=== PATIENT | male | born 1935 | race Caucasian/White ===

== ENCOUNTER 2017-06-09 22:42 | Emergency (ER) | payer MEDICARE ==
--- NOTE | 2017-06-09 23:21 | ER Document Report ---
ED General - General Chief Complaint: High Blood Sugar Stated Complaint: BLOOD SUGAR ISSUE Time Seen by Provider: 06/09/17 23:01 Notes: Patient is an 81-year-old male who presents with complaint of high blood sugar. He is a long-term diabetic. He says he has been diabetic for 55 years. He says every time he gets steroid shot his sugars go up. Has history of back issues. He says his doctor was adamant about giving him a steroid shot. He got a cortisone shot in his back. Today's blood she was found to be more than 600. He therefore was brought to the ER. He says he otherwise feels well and has no further complaints. He denies any recent infections. He denies any vomiting. No pain other than his chronic back pain. The only complaint he has is that he has a chronic "hitch" in the pinky of his left hand. He says it is due to history of carpal tunnel syndrome. He asked if there is a hand doctor he could be referred to to see if they can fix the hitch in his left fifth digit. Patient does have history of atrial fibrillation and is on Pradaxa. TRAVEL OUTSIDE OF THE [place] IN LAST 30 DAYS: No - Related Data Allergies/Adverse Reactions: lorazepam [From Ativan] Adverse Reaction (Severe, Verified 08/27/15 14:20) Hallucinations morphine [Morphine] Adverse Reaction (Severe, Verified 08/27/15 16:41) Hallucinations Past Medical History - Social History Smoking Status: Never Smoker Frequency of alcohol use: None Drug Abuse: None Family History: Reviewed & Not Pertinent - Past Medical History Cardiac Medical History: Reports: Hx Atrial Fibrillation, Hx Congestive Heart Failure, Hx Heart Attack, Hx Hypercholesterolemia Endocrine Medical History: Reports: Hx Diabetes Mellitus Type 1, Hx Diabetes Mellitus Type 2 Musculoskeltal Medical History: Reports Hx Arthritis - Lumbar Psychiatric Medical History: Reports: Hx Dementia Past Surgical History: Reports: Hx Orthopedic Surgery - Back Review of Systems - Review of Systems Notes: My Normal Review Basic REVIEW OF SYSTEMS: CONSTITUTIONAL : Denies fever, chills, or sweats. Denies recent illness. EENT: Denies eye, ear, throat, or mouth pain or symptoms. Denies nasal or sinus congestion. RESPIRATORY: Denies cough, cold, or chest congestion. Denies shortness of breath, difficulty breathing, or wheezing. GASTROINTESTINAL: Denies abdominal pain. Denies nausea, vomiting, or diarrhea. MUSCULOSKELETAL: Chronic back pain SKIN: Denies rash or skin lesions. NEUROLOGICAL: Denies altered mental status or loss of consciousness. Denies headache. Denies weakness or paralysis or loss of use of either side. Denies problems with gait or speech. Denies sensory or motor loss. ALL OTHER SYSTEMS REVIEWED AND NEGATIVE. Physical Exam - Vital signs Vitals: Temp Pulse Resp BP Pulse Ox 97.6 F 60 20 153/77 H 95 06/09/17 23:28 06/09/17 23:28 06/09/17 23:28 06/09/17 23:28 06/09/17 23:28 - Notes Notes: General Appearance: Well nourished, alert, cooperative, no acute distress, no obvious discomfort. Well-appearing. Vitals: reviewed, See vital signs table. Head: no swelling or tenderness to the head Eyes: PERRL, EOMI, Conjuctiva clear Mouth: No decreasd moisture Lungs: No wheezing, No rales, No rhonci, No accessory muscle use, good air exchange bilaterally. Heart: Normal rate, irregular rythm, No murmur, no rub Abdomen: Normal BS, soft, No rigidity, No abdominal tenderness, No guarding, no rebound, no abdominal masses, no organomegaly Extremities: strength 5/5 in all extremities, good pulses in all extremities, patient's left fifth digit will catch when he goes to flex it and extend it fully. There is no significant swelling or redness to the finger or hand., no edema. Skin: warm, dry, appropriate color, no rash Neuro: speech clear, oriented x 3, normal affect, responds appropriately to questions. Renal nerves II through XII intact. Patient was all extremities without difficulty. Course - Re-evaluation Re-evalutation: 06/10/17 03:15 Patient's blood sugar was initially improving, but started to increase on the latest accucheck; therefore, we have increased his insulin drip some to 7 units/ hr. 06/10/17 06:02 Patient continues to say that he is feeling well. He has no complaints at this time. His blood sugar has been slowly dropping down trending appropriately. Once his blood sugar is below 250 I will discharge him home with increasing his Lantus. We will looking over his medication reconciliation it appears that he is on Lantus 15 units daily. I have given him 25 units here this morning. He is also on sliding scale insulin with frequent Accu-Cheks as well as glimepiride and metformin. These are all done at the assisted living facility. We will have him continue his baseline medications but increase his Lantus to 25 units for the next several days. This should hopefully give good coverage for the expected increase in his blood sugar from received the cortisone shot. 06/10/17 07:25 Patient's blood sugar is below 200. He will be discharged home. He says he continues to feel great. I talked in length about avoiding sweet foods and candies. I informed him to give the instructions to die cast supervisor at the assisted living facility where he stays so that they can appropriately adjust his Lantus. I encourage him return to ER immediately if he has recurrent high sugars despite taking his insulin. Also encouraged him to make sure that he makes the sister living facility workers aware if he starts feel dizzy or lightheaded so that they can check his blood sugar. Patient agrees with plan and he will be discharged home. Dictation of this chart was performed using voice recognition software; therefore, there may be some unintended grammatical errors. - Vital Signs Vital signs: Temp Pulse Resp BP Pulse Ox 97.6 F 60 20 121/60 96 06/09/17 23:28 06/09/17 23:28 06/10/17 06:31 06/10/17 06:31 06/10/17 06:31 - Laboratory Result Diagrams: 06/09/17 23:20 06/09/17 23:20 Laboratory results interpreted by me: 06/09/17 06/09/17 06/09/17 23:20 23:20 23:24 WBC 3.4 L RBC 3.95 L Hgb 12.7 L Hct 37.6 L Seg Neutrophils % 89.3 H Lymphocytes % 9.7 L Monocytes % 0.9 L Absolute Lymphocytes 0.3 L Absolute Monocytes 0.0 L Sodium 133.2 L Carbon Dioxide 21 L BUN 26 H Glucose 599 H* POC Glucose 512 H* Urine Glucose (UA) Urine Ketones Urine Blood 06/09/17 06/10/17 06/10/17 23:41 01:19 02:25 WBC RBC Hgb Hct Seg Neutrophils % Lymphocytes % Monocytes % Absolute Lymphocytes Absolute Monocytes Sodium Carbon Dioxide BUN Glucose POC Glucose 436 H* 435 H* Urine Glucose (UA) >=500 H Urine Ketones TRACE H Urine Blood SMALL H 06/10/17 06/10/17 06/10/17 03:32 04:22 05:51 WBC RBC Hgb Hct Seg Neutrophils % Lymphocytes % Monocytes % Absolute Lymphocytes Absolute Monocytes Sodium Carbon Dioxide BUN Glucose POC Glucose 395 H 390 H 279 H Urine Glucose (UA) Urine Ketones Urine Blood Discharge - Discharge Clinical Impression: Hyperglycemia Condition: Good Disposition: HOME, SELF-CARE Additional Instructions: We will need to increase your insulin dosage over the next 3 days to help compensate for your high blood sugar related to the cortisone shot. Please increase your Lantus dosage from 15 units to 25 units daily for better blood sugar control over the next 3 days. We have already given your Lantus dosage for today (06/10/17). Please continue your other diabetes medications including your sliding scale insulin. Please return to the ER if you develop recurrent high blood sugars despite your insulin treatment. Please return your lantus dosage back to 15 units a day if your blood sugar is running below 90. Please eat if your blood sugar is below 90. Prescriptions: Insulin Glargine,Hum.rec.anlog [Lantus Solostar] 25 unit SQ DAILY #1 insuln.pen Referrals: ANTHONY VASQUEZ PA-C [Primary Care Provider] - 06/11/17
[2017-06-09] MEDS ORDERED: GLUCAGON,HUMAN RECOMB 1 MG INJ IM PRN (23:22)
[2017-06-09] MEDS ORDERED: DEXTROSE 40% GEL 15 GM TUBE PO PRN ×2 (23:22)
[2017-06-09] MEDS ORDERED: DEXTROSE 50%-WATER 25 GM/50 ML DISP.SYRIN IV PRN ×2 (23:22)
[2017-06-09 23:33] LABS: ABSOLUTE LYMPHOCYTES (AUTO) 0.3 10^3/uL (0.5-4.7); BASOPHILS % (AUTO) 0.1 % (0-2); HEMATOCRIT 37.6 % (37.9-51.0); HEMOGLOBIN 12.7 g/dL (13.5-17.0); HGB HCT DIFFERENCE 0.5; LYMPHOCYTES % (AUTO) 9.7 % (13-45); MEAN CORPUSCULAR HEMOGLOBIN 32.3 pg (27.0-33.4); MEAN CORPUSCULAR HGB CONC 33.9 g/dL (32.0-36.0); MEAN CORPUSCULAR VOLUME 95 fl (80-97); MONOCYTES % (AUTO) 0.9 % (3-13); RED BLOOD COUNT 3.95 10^6/uL (4.35-5.55); RED CELL DISTRIBUTION WIDTH 13.4 % (11.5-14.0); SEGMENTED NEUTROPHILS % (AUTO) 89.3 % (42-78); WHITE BLOOD COUNT 3.4 10^3/uL (4.0-10.5)
[2017-06-10] LABS: ANION GAP 12 (5-19); BLOOD UREA NITROGEN 26 mg/dL (7-20); CALCIUM 8.8 mg/dL (8.4-10.2); CARBON DIOXIDE 21 mmol/L (22-30); CHLORIDE 100 mmol/L (98-107); POTASSIUM 4.9 mmol/L (3.6-5.0); SODIUM 133.2 mmol/L (137-145)
[2017-06-10] MEDS ORDERED: INSULIN REG, HUMAN 100 UNIT/ML 3 ML VIAL (PYX) ONE
[2017-06-10 00:09] LABS: APPEARANCE,URINE CLEAR; BILIRUBIN,URINE NEGATIVE (NEGATIVE); GLUCOSE, URINE >=500 mg/dL (NEGATIVE); KETONES,URINE TRACE mg/dL (NEGATIVE); LEUKOCYTE ESTERASE,URINE NEGATIVE (NEGATIVE); NITRITE,URINE NEGATIVE (NEGATIVE); PROTEIN,URINE NEGATIVE (NEGATIVE); URINE SPECIFIC GRAVITY 1.025; UROBILINOGEN,URINE NEGATIVE mg/dL (<2.0)
[2017-06-10 00:21] LABS: GLUCOSE 599 mg/dL (75-110)
[2017-06-10] MEDS: NORMAL SALINE 100 ML with INSULIN REGULAR, HUMAN 100 UNIT IV PRN ×4 (00:25→00:29)
[2017-06-10] MEDS ORDERED: INSULIN GLARGINE,HUM.REC.ANLOG 1,000 UNIT/10 ML UNIT SUBCUT ONE ×2 (04:48→06:02)
[2017-06-10 07:34] VITALS: BP 104/63
== END 2017-06-10 08:14 | disposition home or self-care (01) ==
LOC: ER 22:42
DX: E11.65 Type 2 diabetes mellitus with hyperglycemia (principal); Z79.84 Long term (current) use of oral hypoglycemic drugs; I48.91 Unspecified atrial fibrillation; I50.9 Heart failure, unspecified; I25.2 Old myocardial infarction; E78.00 Pure hypercholesterolemia, unspecified
CPT/HCPCS: 99285; 36415; 82962; 85025; 80048; 81001; A9270; J1815

== ENCOUNTER 2017-07-31 19:15 | Emergency (ER) | payer MEDICARE ==
--- NOTE | 2017-07-31 19:50 | ER Document Report ---
ED General - General Stated Complaint: FEELING SICK Time Seen by Provider: 07/31/17 19:20 Notes: Patient is an 82-year-old male who presents with fever, cough and feeling nauseated for the past 2 days. Patient reports that symptoms came on abruptly and have been overall unchanged since that time. Nothing improves or worsens his symptoms. He denies any history of similar symptoms in the past. He has not seen his general doctor regarding these concerns. He reports [facility] with [facility]. He did receive an influenza vaccine this year. He denies any shortness of breath, chest pain, headache, neck pain, or altered mental status TRAVEL OUTSIDE OF THE [place] IN LAST 30 DAYS: No - Related Data Allergies/Adverse Reactions: lorazepam [From Ativan] Adverse Reaction (Severe, Verified 08/27/15 14:20) Hallucinations morphine [Morphine] Adverse Reaction (Severe, Verified 08/27/15 16:41) Hallucinations Past Medical History - General Information source: Patient - Social History Smoking Status: Never Smoker Frequency of alcohol use: None Drug Abuse: None Lives with: Shelter Family History: Reviewed & Not Pertinent - Past Medical History Cardiac Medical History: Reports: Hx Atrial Fibrillation, Hx Congestive Heart Failure, Hx Heart Attack, Hx Hypercholesterolemia Endocrine Medical History: Reports: Hx Diabetes Mellitus Type 1, Hx Diabetes Mellitus Type 2 Renal/ Medical History: Denies: Hx Peritoneal Dialysis Musculoskeltal Medical History: Reports Hx Arthritis - Lumbar Psychiatric Medical History: Reports: Hx Dementia Past Surgical History: Reports: Hx Orthopedic Surgery - Back Review of Systems - Review of Systems Notes: Constitutional: Positive for fever. HENT: Negative for sore throat. Eyes: Negative for visual changes. Cardiovascular: Negative for chest pain. Respiratory: Negative for shortness of breath. Positive for cough Gastrointestinal: Negative for abdominal pain, vomiting or diarrhea. Genitourinary: Negative for dysuria. Musculoskeletal: Negative for back pain. Skin: Negative for rash. Neurological: Negative for headaches, weakness or numbness. 10 point ROS negative except as marked above and in HPI. Physical Exam - Vital signs Vitals: Temp Pulse Resp BP Pulse Ox 99.0 F 65 18 112/48 L 93 07/31/17 19:19 07/31/17 19:19 07/31/17 19:19 07/31/17 19:19 07/31/17 19:19 Interpretation: Normal Notes: PHYSICAL EXAMINATION: GENERAL: Well-appearing, well-nourished and in no acute distress. HEAD: Atraumatic, normocephalic. EYES: Pupils equal round and reactive to light, extraocular movements intact, sclera anicteric, conjunctiva are normal. ENT: nares patent, oropharynx clear without exudates. Moderately dry mucous membranes. NECK: Normal range of motion, supple without lymphadenopathy LUNGS: Breath sounds clear to auscultation bilaterally and equal. No wheezes rales or rhonchi. HEART: Regular rate and rhythm without murmurs ABDOMEN: Soft, nontender, normoactive bowel sounds. No guarding, no rebound. No masses appreciated. EXTREMITIES: Normal range of motion, no pitting or edema. No cyanosis. NEUROLOGICAL: No focal neurological deficits. Moves all extremities spontaneously and on command. PSYCH: Normal mood, normal affect. SKIN: Warm, Dry, normal turgor, no rashes or lesions noted. Course - Re-evaluation Re-evalutation: 07/31/17 19:50 Patient presents with cough, vomiting, diarrhea, and fever at home consistent with a diagnosis of influenza. Influenza testing is positive. Patient is overall well in appearance, in no acute distress. Lung sounds clear. Able to tolerate oral intake without difficulty here in the emergency department. After risks and benefits conversation with the patient regarding the use of Tamiflu, they have elected to use supportive care without Tamiflu based on concerns about lack of efficacy as well as the side effect profile. Moreover, patient has been having symptoms for greater than 48 hours at time of presentation moving any likely efficacy of the medication. At this time will discharge with return precautions and follow-up recommendations. Verbal discharge instructions given a the bedside and opportunity for questions given. Medication warnings reviewed. Patient is in agreement with this plan and has verbalized understanding of return precautions and the need for primary care follow-up in the next 24-72 hours. - Vital Signs Vital signs: Temp Pulse Resp BP Pulse Ox 98.7 F 87 16 107/64 94 07/31/17 22:26 07/31/17 22:26 07/31/17 22:26 07/31/17 22:26 07/31/17 22:26 - Laboratory Result Diagrams: 07/31/17 20:00 07/31/17 20:00 Laboratory results interpreted by me: 07/31/17 07/31/17 20:00 20:00 RBC 3.61 L Hgb 11.8 L Hct 33.7 L Lymphocytes % 11.5 L Sodium 135.1 L Glucose 173 H - Diagnostic Test Radiology reviewed: Image reviewed, Reports reviewed Radiology results interpreted by me: 07/31/17 21:31 Chest x-ray: No acute infiltrate or pneumothorax Discharge - Discharge Clinical Impression: Influenza A Condition: Good Disposition: HOME, SELF-CARE Additional Instructions: You have influenza. There is no treatment that is effective for this diagnosis other than supportive care at home. This includes drinking plenty of fluids, using Tylenol or ibuprofen as needed for fever and discomfort, and Zofran as needed for nausea and vomiting. Please follow closely with you primary care physician the next 1-2 days regarding this diagnosis. Return to the emergency department immediately if you began to have persistent vomiting prevents you from being able to keep fluids down for more than 12 hours, you pass out, you began having difficulty breathing, you become confused, or you have any other symptoms that are worrisome to you. Prescriptions: Ondansetron [Zofran Odt 4 mg Tablet] 1 - 2 tab PO Q4H PRN #15 tab.rapdis PRN Reason: For Nausea/Vomiting Referrals: ANTHONY VASQUEZ PA-C [Primary Care Provider] - Follow up as needed
--- NOTE | 2017-07-31 20:04 | RADIOLOGY REPORT (SQ) ---
EXAM DESCRIPTION: CHEST SINGLE VIEW COMPLETED DATE/TIME: 07/31/2017 7:54 pm REASON FOR STUDY: fever, sob COMPARISON: 10/27/2015 EXAM PARAMETERS: NUMBER OF VIEWS: One view. TECHNIQUE: Single frontal radiographic view of the chest acquired. RADIATION DOSE: NA LIMITATIONS: None. FINDINGS: LUNGS AND PLEURA: No opacities, masses or pneumothorax. No pleural effusion. MEDIASTINUM AND HILAR STRUCTURES: No masses. Contour normal. HEART AND VASCULAR STRUCTURES: Heart normal in size. Normal vasculature. BONES: No acute findings. HARDWARE: None in the chest. OTHER: No other significant finding. IMPRESSION: NO ACUTE RADIOGRAPHIC FINDING IN THE CHEST. TECHNICAL DOCUMENTATION: JOB ID: [id number] [employer]- All Rights Reserved
[2017-07-31 20:44] LABS: ABSOLUTE EOSINOPHILS # (AUTO) 0.1 10^3/uL (0.0-0.6); ABSOLUTE LYMPHOCYTES (AUTO) 0.6 10^3/uL (0.5-4.7); ABSOLUTE MONOCYTES (AUTO) 0.6 10^3/uL (0.1-1.4); ABSOLUTE NEUT (AUTO) 3.6 10^3/uL (1.7-8.2); BASOPHILS % (AUTO) 0.9 % (0-2); EOSINOPHILS % (AUTO) 1.6 % (0-6); HEMATOCRIT 33.7 % (37.9-51.0); HEMOGLOBIN 11.8 g/dL (13.5-17.0); LYMPHOCYTES % (AUTO) 11.5 % (13-45); MEAN CORPUSCULAR HEMOGLOBIN 32.5 pg (27.0-33.4); MEAN CORPUSCULAR HGB CONC 34.9 g/dL (32.0-36.0); MEAN CORPUSCULAR VOLUME 93 fl (80-97); MONOCYTES % (AUTO) 12.9 % (3-13); PLATELET COUNT 177 10^3/uL (150-450); RED BLOOD COUNT 3.61 10^6/uL (4.35-5.55); RED CELL DISTRIBUTION WIDTH 13.3 % (11.5-14.0); SEGMENTED NEUTROPHILS % (AUTO) 73.1 % (42-78); TOTAL CELLS COUNTED % (AUTO) 100 %
[2017-07-31 20:52] LABS: A TYPE INFLUENZA AG POSITIVE (NEGATIVE); B INFLUENZA AG NEGATIVE (NEGATIVE)
[2017-07-31 20:53] LABS: ANION GAP 7 (5-19); BLOOD UREA NITROGEN 16 mg/dL (7-20); CALCIUM 8.7 mg/dL (8.4-10.2); CARBON DIOXIDE 23 mmol/L (22-30); CHLORIDE 105 mmol/L (98-107); GLUCOSE 173 mg/dL (75-110); POTASSIUM 4.3 mmol/L (3.6-5.0); SODIUM 135.1 mmol/L (137-145)
[2017-08-01 03:25] VITALS: BP 147/56
== END 2017-08-01 03:23 | disposition home or self-care (01) ==
LOC: ER 19:15
DX: J10.1 Influenza due to other identified influenza virus with other respiratory manifestations (principal); R50.9 Fever, unspecified; R11.0 Nausea; I48.91 Unspecified atrial fibrillation; I50.9 Heart failure, unspecified; E78.00 Pure hypercholesterolemia, unspecified; E11.9 Type 2 diabetes mellitus without complications; I25.2 Old myocardial infarction; Z88.6 Allergy status to analgesic agent
CPT/HCPCS: 36415; 71045; 80048; 83605; 85025; 87040; 87804; 99284

== ENCOUNTER 2020-04-13 09:18 | Emergency (ER) | payer MEDICARE ==
--- NOTE | 2020-04-13 10:45 | RADIOLOGY REPORT (SQ) ---
EXAM DESCRIPTION: HIP LEFT AP/LATERAL IMAGES COMPLETED DATE/TIME: 04/13/2020 10:25 am REASON FOR STUDY: fall, pain on palpation COMPARISON: None. NUMBER OF VIEWS: Two views. TECHNIQUE: AP pelvis and additional frog legview of the left hip. LIMITATIONS: None. FINDINGS: MINERALIZATION: Normal. LEFT HIP: No fracture or dislocation. No worrisome bone lesions. Mild osteophytosis. Joint spaces well maintained. RIGHT HIP: No fracture or dislocation. No worrisome bone lesions. Limited views. Mild osteophytosis . Joint space well maintained. PUBIS AND ISCHIUM: No fracture. SACRUM: No fracture or dislocation. No worrisome bone lesions. LOWER LUMBAR SPINE: No acute fracture. No suspicious osseous lesions. Lower level spondylosis. SOFT TISSUES: Vascular calcifications. OTHER: No other significant finding. IMPRESSION: No evidence of acute bony abnormality of the left hip and pelvis. Mild bilateral osteoa rthritic change. COMMENT: Pelvic fractures are often occult on plain radiographs. If high clinical concern or inabil ity to bear weight recommend CT or MRI. TECHNICAL DOCUMENTATION: JOB ID: [id number] 2010 [employer]- All Rights Reserved Reading location - IP/workstation name: [email or web address]
[2020-04-13 11:55] LABS: ABSOLUTE EOSINOPHILS # (AUTO) 0.1 10^3/uL (0.0-0.6); ABSOLUTE LYMPHOCYTES (AUTO) 1.1 10^3/uL (0.5-4.7); ABSOLUTE MONOCYTES (AUTO) 0.7 10^3/uL (0.1-1.4); ABSOLUTE NEUT (AUTO) 5.7 10^3/uL (1.7-8.2); BASOPHILS % (AUTO) 0.3 % (0-2); EOSINOPHILS % (AUTO) 0.7 % (0-6); HEMATOCRIT 28.7 % (37.9-51.0); HEMOGLOBIN 10.1 g/dL (13.5-17.0); LYMPHOCYTES % (AUTO) 13.9 % (13-45); MEAN CORPUSCULAR HEMOGLOBIN 33.4 pg (27.0-33.4); MEAN CORPUSCULAR HGB CONC 35.3 g/dL (32.0-36.0); MEAN CORPUSCULAR VOLUME 95 fl (80-97); MONOCYTES % (AUTO) 9.5 % (3-13); PLATELET COUNT 176 10^3/uL (150-450); RED BLOOD COUNT 3.03 10^6/uL (4.35-5.55); SEGMENTED NEUTROPHILS % (AUTO) 75.6 % (42-78); TOTAL CELLS COUNTED % (AUTO) 100 %; WHITE BLOOD COUNT 7.6 10^3/uL (4.0-10.5)
[2020-04-13 12:06] LABS: INTERNATIONAL RATION (INR) 2.09; PROTHROMBIN TIME 23.5 SEC (11.4-15.4)
[2020-04-13 12:35] LABS: ALBUMIN 3.2 g/dL (3.5-5.0); ALKALINE PHOSPHATASE 61 U/L (38-126); ANION GAP 8 (5-19); ASPARTATE AMINO TRANSFERASE 17 U/L (17-59); BILIRUBIN,DIRECT 0.2 mg/dL (0.0-0.4); BILIRUBIN,TOTAL 0.6 mg/dL (0.2-1.3); BLOOD UREA NITROGEN 44 mg/dL (7-20); CALCIUM 8.1 mg/dL (8.4-10.2); CARBON DIOXIDE 20 mmol/L (22-30); CHLORIDE 106 mmol/L (98-107); CREATINE KINASE 96 U/L (55-170); GLUCOSE 162 mg/dL (75-110); POTASSIUM 5.2 mmol/L (3.6-5.0); TOTAL PROTEIN 5.8 g/dL (6.3-8.2)
--- NOTE | 2020-04-13 12:38 | ER Document Report ---
Entered by ESTELA KEY SCRIBE 04/13/20 1121 Acting as scribe for:DARREL APPIAH MD ED Fall - General Chief Complaint: Hip Pain Stated Complaint: HIP PAIN/FALL Time Seen by Provider: 04/13/20 11:14 Primary Care Provider: ANTHONY VASQUEZ PA-C [Primary Care Provider] - Follow up as needed Mode of Arrival: Ambulatory Information source: Patient Notes: This 84 year old male patient on pradaxa presents to the emergency department today with complaints of left hip pain after a fall. [facility] and his fall was witnessed by staff. He was getting up from the bed, fell, and landed on his left side. He did not hit his head. He has difficulty bearing weight due to the pain when he stands. TRAVEL OUTSIDE OF THE [place] IN LAST 30 DAYS: No - Related data Allergies/Adverse Reactions: lorazepam [From Ativan] Adverse Reaction (Severe, Verified 08/27/15 14:20) Hallucinations morphine [Morphine] Adverse Reaction (Severe, Verified 08/27/15 16:41) Hallucinations Home Medications: carvedilol, certavit, donezepil, gabapentin, glimepiride, humalog, lantus, lisinopril, memantine metformin, pradaxa, sertraline, tamsulosin, tramadol, seroquel Past Medical History - General Information source: Patient - Social History Smoking Status: Former Smoker Cigarette use (# per day): No Frequency of alcohol use: None Drug Abuse: None Lives with: Family Family History: Reviewed & Not Pertinent - Past Medical History Cardiac Medical History: Reports: Hx Atrial Fibrillation, Hx Congestive Heart Failure, Hx Heart Attack, Hx Hypercholesterolemia Endocrine Medical History: Reports: Hx Diabetes Mellitus Type 2 Musculoskeletal Medical History: Reports Hx Arthritis - Lumbar Psychiatric Medical History: Reports: Hx Dementia Past Surgical History: Reports: Hx Orthopedic Surgery - Back Review of Systems - Review of Systems Constitutional: No symptoms reported EENT: No symptoms reported Cardiovascular: No symptoms reported Respiratory: No symptoms reported Gastrointestinal: No symptoms reported Genitourinary: No symptoms reported Male Genitourinary: No symptoms reported Musculoskeletal: See HPI, Joint pain - left hip Skin: No symptoms reported Hematologic/Lymphatic: No symptoms reported Neurological/Psychological: No symptoms reported -: Yes All other systems reviewed and negative Physical Exam - Vital signs Vitals: Temp Pulse Resp BP Pulse Ox 97.5 F 68 16 104/56 L 95 04/13/20 09:19 04/13/20 09:19 04/13/20 09:19 04/13/20 09:19 04/13/20 09:19 - Notes Notes: Physical Exam: General: Alert, pleasantly confused. HEENT: Normocephalic. Atraumatic. PERRL. Extraocular movements intact. Oropharynx clear. Neck: Supple. Non-tender. Respiratory: No respiratory distress. Clear and equal breath sounds bilaterally. Cardiovascular: Regular rate and rhythm. Abdominal: Normal Inspection. Non-tender. No distension. Normal Bowel Sounds. Back: No gross abnormalities. Extremities: Moves all four extremities. Upper extremities: Normal inspection. Normal ROM. Lower extremities: Left lateral hip tenderness to palpation with associated swelling. Neurological: Pleasantly confused. AAOx4. Normal speech. Psychological: Normal affect. Normal Mood. Skin: Warm. Dry. Normal color. Course - Re-evaluation Re-evalutation: 04/13/20 12:54 Patient's INR was 2.09 due to the Pradaxa he takes. CT scan of the hip was done to exclude a large hematoma as there is some swelling and tenderness around the hip and he is anticoagulated. - Vital Signs Vital signs: Temp Pulse Resp BP Pulse Ox 97.5 F 68 18 112/53 L 94 04/13/20 09:44 04/13/20 09:19 04/13/20 10:02 04/13/20 10:02 04/13/20 10:02 - Laboratory Result Diagrams: 04/13/20 11:44 04/13/20 11:44 Laboratory results interpreted by me: 04/13/20 04/13/20 04/13/20 11:44 11:44 11:44 RBC 3.03 L Hgb 10.1 L Hct 28.7 L PT 23.5 H Sodium 134.3 L Potassium 5.2 H Carbon Dioxide 20 L BUN 44 H Creatinine 1.75 H Est GFR ( Amer) 45 L Est GFR (MDRD) Non-Af 37 L Glucose 162 H Calcium 8.1 L Total Protein 5.8 L Albumin 3.2 L Urine Protein Urine Glucose (UA) Urine Urobilinogen 04/13/20 13:52 RBC Hgb Hct PT Sodium Potassium Carbon Dioxide BUN Creatinine Est GFR ( Amer) Est GFR (MDRD) Non-Af Glucose Calcium Total Protein Albumin Urine Protein 30 H Urine Glucose (UA) 50 H Urine Urobilinogen 2.0 H - Diagnostic Test Radiology reviewed: Image reviewed, Reports reviewed - X-ray left hip does not show fracture. CT scan did not show hematoma, there was some stranding in the subcutaneous tissue over the left hip. Again, no fracture is seen. Discharge - Discharge Clinical Impression: Contusion of hip region, Anticoagulated Dementia Qualifiers: Dementia type: unspecified type Dementia behavioral disturbance: without behavioral disturbance Qualified Code(s): F03.90 - Unspecified dementia without behavioral disturbance Condition: Stable Disposition: HOME, SELF-CARE Additional Instructions: Hip Contusion: Your injury has resulted in a contusion -- a crushing of the deep tissues. No injury to important structures was detected during the physician's exam. Contusions vary in the amount of pain they cause, and in the length of time required for healing. Typically, the area will become bruised, and will remain painful to touch for two or three weeks. However, most patients are back to working and playing within a few days. After the initial period of rest and cold-packs, your symptoms (together with the doctor's recommendations) will determine how rapidly you can get back to full activity. Usually this means "do what feels okay, but don't do things that hurt." If re-examination was recommended, it's important to follow up as instruc dejan. Call the doctor or return any time if pain increases, if swelling becomes severe, if you develop numbness or weakness in an injured extremity, or if any other alarming symptoms occur. Your imaging studies today did not show fracture of the hip. There is some swelling in the left hip soft tissues due to being on Pradaxa. You will probably develop some bruising in the area over the next few days. Take Tylenol for pain. Use ice packs to the painful hip area. Use the walker when you have to get up to go to the bathroom for additional support. Follow-up with your primary care provider if not improving. RETURN TO THE EMERGENCY ROOM IF ANY NEW OR WORSENING SYMPTOMS. Prescriptions: Walker [Ultra-Light Rollator] 1 each MC DAILY #1 each Referrals: ANTHONY VASQUEZ PA-C [Primary Care Provider] - Follow up as needed I personally performed the services described in the documentation, reviewed and edited the documentation which was dictated to the scribe in my presence, and it accurately records my words and actions.
--- NOTE | 2020-04-13 12:39 | RADIOLOGY REPORT (SQ) ---
EXAM DESCRIPTION: CT LT LOWER EXTREMITY WITHOUT IMAGES COMPLETED DATE/TIME: 04/13/2020 12:08 pm REASON FOR STUDY: Fall, pain, swelling, on Pradaxa COMPARISON: Same day radiograph TECHNIQUE: CT scan of the left hip performed without intravenous or oral contrast. Images reviewed with soft tissue and bone windows. Reconstructed coronal and sagittal MPR images reviewed. All imag es stored on PACS. All CT scanners at this facility use dose modulation, iterative reconstruction, and/or weight based d osing when appropriate to reduce radiation dose to as low as reasonably achievable (ALARA). [facility]: Dose Right [facility]: CareDose [facility]: Dose Right [facility]: Teradose 4D [facility]: [place] RADIATION DOSE: CT Rad equipment meets quality standard of care and radiation dose reduction techniq ues were employed. CTDIvol: 4.1 mGy. DLP: 180 mGy-cm. mGy. LIMITATIONS: None. FINDINGS: PELVIC BONES: No acute fracture. No worrisome bone lesions. VISUALIZED SPINE: No acute findings. SYMPTOMATIC HIP: No acute fracture or dislocation. Mild degenerative change with osteophytosis and m ild joint space loss. OPPOSITE HIP: Not imaged. PELVIC SOFT TISSUES: No acute findings. Vascular calcifications. EXTRAPELVIC SOFT TISSUES: Vascular calcifications. OTHER: No other significant finding. IMPRESSION: Mild osteoarthritic change without evidence of acute bony abnormality of the left hip. TECHNICAL DOCUMENTATION: JOB ID: [id number] Quality ID # [id number]: Final reports with documentation of one or more dose reduction techniques (e.g., Au tomated exposure control, adjustment of the mA and/or kV according to patient size, use of iterative reconstruction technique) 2010 [employer]- All Rights Reserved Reading location - IP/workstation name: [email or web address]
[2020-04-13 14:24] LABS: APPEARANCE,URINE SLIGHTLY-CLOUDY; BILIRUBIN,URINE NEGATIVE (NEGATIVE); COLOR,URINE AMBER; GLUCOSE, URINE 50 mg/dL (NEGATIVE); KETONES,URINE NEGATIVE (NEGATIVE); LEUKOCYTE ESTERASE,URINE NEGATIVE (NEGATIVE); NITRITE,URINE NEGATIVE (NEGATIVE); PROTEIN,URINE 30 mg/dL (NEGATIVE); URINE SPECIFIC GRAVITY 1.025
[2020-04-13 15:53] VITALS: BP 112/76
--- NOTE | 2020-04-13 18:08 | EKG REPORT ---
SEVERITY:- ABNORMAL ECG - SINUS RHYTHM INCOMPLETE LEFT BUNDLE BRANCH BLOCK BORDERLINE R WAVE PROGRESSION, ANTERIOR LEADS : Confirmed by: Jacquelin Phelps 13-Apr-2020 18:07:11
== END 2020-04-13 15:52 | disposition home or self-care (01) ==
LOC: ER 09:18
DX: S70.00XA Contusion of unspecified hip, initial encounter (principal); M25.552 Pain in left hip; W19.XXXA Unspecified fall, initial encounter; Y93.89 Activity, other specified; Y92.122 Bedroom in nursing home as the place of occurrence of the external cause; I48.91 Unspecified atrial fibrillation; E11.9 Type 2 diabetes mellitus without complications; Z79.899 Other long term (current) drug therapy; Z79.4 Long term (current) use of insulin; Z79.01 Long term (current) use of anticoagulants; Z87.891 Personal history of nicotine dependence
CPT/HCPCS: 36415; 80053; 81001; 82550; 84484; 85025; 85610; 93005; 93010; 99285